=== PATIENT | female | born 1990 | race Two or more races ===

== ENCOUNTER 2019-12-07 03:00 | Inpatient (IN) | payer MEDICAID ==
[~2019-12-07] VITALS: Ht 170.2 cm; Wt 76.3 kg
[2019-12-07] MEDS ORDERED: LACTATED RINGERS 1,000 ML IV SCH (05:52)
[2019-12-07] MEDS ORDERED: NEWBORN KIT ONE (05:58)
[2019-12-07] MEDS ORDERED: METOCLOPRAMIDE 5 MG/ML, 2ML ONE (05:58)
[2019-12-07] MEDS ORDERED: OXYTOCIN 30U/ 0.9% NaCL 500ML 500 ML ONE (05:59)
[2019-12-07] MEDS ORDERED: METOCLOPRAMIDE 5 MG/ML, 2ML IV ONE (06:00)
[2019-12-07] MEDS ORDERED: SODIUM CITRATE/CITRIC ACID 30 ML UDC PO ONE (06:00)
[2019-12-07] MEDS ORDERED: LACTATED RINGERS 1,000 ML IVBOLUS ONE (06:00)
[2019-12-07 06:10] VITALS: BP 108/62
[2019-12-07] MEDS ORDERED: PREN-3 PO (06:11)
[2019-12-07 06:41] LABS: BASOPHILS # (AUTO) 0.02 x10^3/uL (0-0.1); BASOPHILS % (AUTO) 0 % (0-1); EOSINOPHILS # (AUTO) 0.16 x10^3/uL (0-0.4); EOSINOPHILS % (AUTO) 1 % (1-7); LYMPHOCYTES # (AUTO) 2.01 x10^3/uL (1-3.4); LYMPHOCYTES % (AUTO) 18 % (22-44); MD NO; MEAN CORPUSCULAR HGB CONC 33.4 g/dL (32.4-35.8); MEAN PLATELET VOLUME 9.1 fL (7.4-10.4); MONOCYTES # (AUTO) 0.57 x10^3/uL (0.2-0.8); MONOCYTES % (AUTO) 5 % (2-9); NEUTROPHILS # (AUTO) 8.72 x10^3/uL (1.8-6.8); NEUTROPHILS % (AUTO) 76 % (42-75); PLATELET COUNT 203 x10^3/uL (130-400); RED BLOOD COUNT 4.17 x10^6/uL (3.82-5.3); RED CELL DISTRIBUTION WIDTH 14.5 % (9.6-15.2)
[2019-12-07 06:42] LABS: AMPHETAMINE SCREEN, URINE Negative (Negative); BARBITURATE SCREEN, URINE Negative (Negative); BENZODIAZEPINE SCREEN, URINE Negative (Negative); CANNABINOID SCREEN, URINE Negative (Negative); COCAINE SCREEN, URINE Negative (Negative); METHADONE SCREEN, URINE Negative (Negative); OPIATE SCREEN, URINE Negative (Negative)
[2019-12-07] MEDS ORDERED: morphine SULFATE/PF 0.5 MG/ML, 10ML ONE (07:37)
[2019-12-07] MEDS ORDERED: DEXAMETHASONE 4 MG/ML, 1ML ONE (07:48)
[2019-12-07] MEDS ORDERED: OXYTOCIN 10 UNITS/ML, 1ML ONE (07:48)
[2019-12-07] MEDS ORDERED: WATER-INJECTION,STERILE 10 ML IV ONE (07:48)
[2019-12-07] MEDS ORDERED: PHENYLEPHRINE 10 MG/ML ONE (07:48)
[2019-12-07] MEDS ORDERED: ONDANSETRON 2MG/ML, 2ML ONE (07:48)
[2019-12-07] MEDS ORDERED: KETOROLAC 30 MG/1 ML ONE (07:48)
[2019-12-07] MEDS ORDERED: CEFAZOLIN 1,000 MG ONE (07:48)
[2019-12-07] MEDS ORDERED: SODIUM CHLORIDE 0.9% PF 10ML ONE (07:48)
[2019-12-07] MEDS: LACTATED RINGERS 1,000 ML IV SCH ×8 (09:03→20:42)
[2019-12-07] MEDS: OXYTOCIN 30U/ 0.9% NaCL 500ML 500 ML IV SCH ×2 (09:11→16:09)
[2019-12-07 09:41] VITALS: BP 101/68
[2019-12-07] MEDS ORDERED: METHYLERGONOVINE 0.2 MG/ML IM PRN (11:00)
[2019-12-07] MEDS ORDERED: ONDANSETRON 2MG/ML, 2ML IV PRN (11:00)
[2019-12-07] MEDS ORDERED: MISOPROSTOL 200 MCG TABLET PR PRN (11:00)
[2019-12-07] MEDS ORDERED: SIMETHICONE 80 MG CHEW TAB PO PRN (11:00)
[2019-12-07] MEDS ORDERED: CARBOPROST TROMETHAMINE 250 MCG/ML, 1ML IM PRN (11:00)
[2019-12-07 12:00] VITALS: BP 114/66
[2019-12-07 13:20] VITALS: BP 115/74
[2019-12-07] MEDS: KETOROLAC 30 MG/1 ML IV SCH ×2 (14:59→21:11)
[2019-12-07 16:15] VITALS: BP 109/71
[2019-12-07 16:56] LABS: MD YES
[2019-12-07] MEDS: OXYcodone/APAP 5/325MG TABLET PO PRN ×2 (16:56→21:10)
[2019-12-07 16:59] LABS: MEAN CORPUSCULAR HGB CONC 32.7 g/dL (32.4-35.8); MEAN CORPUSCULAR VOLUME 94.8 fL (80-100); MEAN PLATELET VOLUME 8.9 fL (7.4-10.4); PLATELET COUNT 217 x10^3/uL (130-400); RED BLOOD COUNT 4.18 x10^6/uL (3.82-5.3); RED CELL DISTRIBUTION WIDTH 14.3 % (9.6-15.2)
[2019-12-07 17:00] LABS: BAND#(MANUAL) 1.69 x10^3/uL; BANDS%(MANUAL) 7 % (0-7); LYMPH#(MANUAL) 1.69 x10^3/uL (1-3.4); LYMPHS% (MANUAL) 7 % (22-44); MONOS#(MANUAL) 1.21 x10^3/uL (0.3-2.7); MONOS% (MANUAL) 5 % (2-9); SEGS% (MANUAL) 81 % (42-75)
[2019-12-07 17:02] LABS: <PLATELET ESTIMATE> ADEQUATE; <PLT MORPHOLOGY> NORMAL PLT MORPH; <RBC MORPHOLOGY> NORMAL
[2019-12-07 19:36] VITALS: BP 110/71
[2019-12-07] MEDS: DOCUSATE 100 MG CAPSULE PO PRN (21:09)
[2019-12-08 00:20] VITALS: BP 118/82
[2019-12-08] MEDS: LACTATED RINGERS 1,000 ML IV SCH ×10 (01:03→19:00)
[2019-12-08] MEDS: OXYcodone/APAP 5/325MG TABLET PO PRN ×5 (02:32→21:36)
[2019-12-08] MEDS: KETOROLAC 30 MG/1 ML IV SCH ×5 (03:09→21:35)
[2019-12-08 03:24] VITALS: BP 105/68
[2019-12-08] MEDS: OXYTOCIN 30U/ 0.9% NaCL 500ML 500 ML IV SCH ×2 (05:03→15:03)
[2019-12-08 07:47] VITALS: BP 101/67
[2019-12-08] MEDS: DOCUSATE 100 MG CAPSULE PO PRN ×2 (08:50→21:36)
[2019-12-08] MEDS ORDERED: PRENATAL VIT/IRON/FA 1 EACH TABLET PO SCH (09:00)
[2019-12-08] MEDS: PRENATAL VIT/IRON/FA 1 EACH TABLET PO SCH (09:00)
[2019-12-08 19:30] VITALS: BP 106/65
[2019-12-08] MEDS: SIMETHICONE 80 MG CHEW TAB PO PRN (21:36)
[2019-12-08] MEDS: IBUPROFEN 600 MG TABLET PO PRN (22:05)
[2019-12-09] MEDS: OXYTOCIN 30U/ 0.9% NaCL 500ML 500 ML IV SCH ×3 (01:03→21:03)
[2019-12-09] MEDS: LACTATED RINGERS 1,000 ML IV SCH ×6 (01:03→21:03)
[2019-12-09] MEDS: SIMETHICONE 80 MG CHEW TAB PO PRN ×2 (04:07→11:47)
[2019-12-09] MEDS: IBUPROFEN 600 MG TABLET PO PRN ×3 (04:07→18:02)
[2019-12-09] MEDS: OXYcodone/APAP 5/325MG TABLET PO PRN ×5 (04:08→20:46)
[2019-12-09 07:00] VITALS: BP 107/71
[2019-12-09] MEDS: PRENATAL VIT/IRON/FA 1 EACH TABLET PO SCH (08:11)
[2019-12-09] MEDS: DOCUSATE 100 MG CAPSULE PO PRN ×2 (11:47→20:45)
[2019-12-09 19:15] VITALS: BP 115/78
[2019-12-10] MEDS: LACTATED RINGERS 1,000 ML IV SCH ×2 (00:22→05:13)
[2019-12-10] MEDS: IBUPROFEN 600 MG TABLET PO PRN ×4 (00:42→23:24)
[2019-12-10] MEDS: OXYcodone/APAP 5/325MG TABLET PO PRN ×7 (00:43→23:25)
[2019-12-10 08:00] VITALS: BP 118/79
[2019-12-10] MEDS: PRENATAL VIT/IRON/FA 1 EACH TABLET PO SCH (08:08)
[2019-12-10] MEDS: DOCUSATE 100 MG CAPSULE PO PRN (08:08)
[2019-12-10] MEDS ORDERED: OXYC-302 PO (09:48)
[2019-12-10] MEDS ORDERED: DOCU-131 PO (09:48)
[2019-12-10] MEDS ORDERED: IBUP-1222 PO (09:48)
[2019-12-10 20:32] VITALS: BP 131/80
[2019-12-11] MEDS: OXYcodone/APAP 5/325MG TABLET PO PRN ×2 (04:16→10:06)
[2019-12-11] MEDS: PRENATAL VIT/IRON/FA 1 EACH TABLET PO SCH (07:18)
[2019-12-11] MEDS: DOCUSATE 100 MG CAPSULE PO PRN (07:18)
[2019-12-11] MEDS: IBUPROFEN 600 MG TABLET PO PRN ×2 (07:18→13:16)
[2019-12-11 07:20] VITALS: BP 111/75
== END 2019-12-11 13:37 | disposition home or self-care (01) | DRG 785 ==
LOC: LDIP 05:48 → 2NW 09:41
PROVIDERS: ADMIT Obstetrics & Gynecology; ATTEND Obstetrics & Gynecology
PROC: 10D00Z1 Extraction of Products of Conception, Low, Open Approach (ICD-10-PCS; principal; 2019-12-07)
PROC: 0UB70ZZ Excision of Bilateral Fallopian Tubes, Open Approach (ICD-10-PCS; 2019-12-07)
DX: O34.211 Maternal care for low transverse scar from previous cesarean delivery (principal); O69.81X0 Labor and delivery complicated by cord around neck, without compression, not applicable or unspecified; Z37.0 Single live birth; Z3A.37 37 weeks gestation of pregnancy; Z87.59 Personal history of other complications of pregnancy, childbirth and the puerperium; Z20.828 Contact with and (suspected) exposure to other viral communicable diseases
CPT/HCPCS: 36415; 80307; 85025; 86592; 86850; 86900; 86923; 87635; 88302; G0378; J0690; J1100; J1885; J2274; J2405; J2210; J2370; J2590; J2765; J7120

== ENCOUNTER 2019-12-19 20:03 | Emergency (ER) | payer MEDICAID ==
[~2019-12-19] VITALS: Ht 170.2 cm; Wt 72.7 kg
[~2019-12-19 20:03] MED LIST: DOCU-131 PO; IBUP-1222 PO; OXYC-302 PO; PREN-3 PO
[2019-12-19 20:51] VITALS: BP 143/81
[2019-12-19] MEDS ORDERED: ONDANSETRON 2MG/ML, 2ML ONE (20:55)
[2019-12-19] MEDS ORDERED: ONDANSETRON 2MG/ML, 2ML IVPush ONE (21:00)
[2019-12-19] MEDS ORDERED: SODIUM CHLORIDE 0.9% 1,000ML IVBOLUS ONE (21:00)
[2019-12-19] MEDS ORDERED: SODIUM CHLORIDE FLUSH 10ML SYR IVF ONE (21:00)
[2019-12-19 21:10] LABS: BASOPHILS # (AUTO) 0.03 x10^3/uL (0-0.1); BASOPHILS % (AUTO) 0 % (0-1); EOSINOPHILS # (AUTO) 0.32 x10^3/uL (0-0.4); EOSINOPHILS % (AUTO) 3 % (1-7); LYMPHOCYTES # (AUTO) 2.26 x10^3/uL (1-3.4); LYMPHOCYTES % (AUTO) 23 % (22-44); MD NO; MEAN CORPUSCULAR HGB CONC 33.3 g/dL (32.4-35.8); MEAN CORPUSCULAR VOLUME 93.2 fL (80-100); MEAN PLATELET VOLUME 7.8 fL (7.4-10.4); MONOCYTES # (AUTO) 0.52 x10^3/uL (0.2-0.8); MONOCYTES % (AUTO) 5 % (2-9); NEUTROPHILS # (AUTO) 6.56 x10^3/uL (1.8-6.8); NEUTROPHILS % (AUTO) 68 % (42-75); PLATELET COUNT 397 x10^3/uL (130-400); RED BLOOD COUNT 4.16 x10^6/uL (3.82-5.3); RED CELL DISTRIBUTION WIDTH 13.8 % (9.6-15.2)
[2019-12-19 21:17] LABS: ALANINE AMINOTRANSFERASE 21 U/L (12-78); ALBUMIN 3.1 g/dL (3.4-5.0); ANION GAP 6 mmol/L (5-15); CALCIUM 8.7 mg/dL (8.5-10.1); CHLORIDE 110 mmol/L (98-107); CREATININE 0.55 mg/dL (0.55-1.02)
[2019-12-19 21:19] LABS: ALKALINE PHOSPHATASE 80 U/L (45-117); BILIRUBIN,TOTAL 0.2 mg/dL (0.2-1.0)
--- NOTE | 2019-12-19 21:39 | NUR ---
Pt arrives to ed with new onset of vaginal bleeding and reports she has saturated 5 pads in 1 hour. Pt reports recently having a cesarian section to deliver. Pt reports she is also more tired but pt also reports she is not sleeping as well due to the baby does not sleep at night. Pt connected to monitors and call light in reach. Pt reports fluids are helping her feel better. Pt has brisk cap refill and has unlabored respirations. Awaiting further orders.
--- NOTE | 2019-12-19 23:07 | NUR ---
Patient/Caregiver given discharge instructions and they have confirmed that they understand the instructions. Patient ambulatory with steady gait.
== END 2019-12-19 23:09 | disposition home or self-care (01) ==
LOC: ED 20:33
DX: O90.89 Other complications of the puerperium, not elsewhere classified (principal); N93.9 Abnormal uterine and vaginal bleeding, unspecified; R10.30 Lower abdominal pain, unspecified; R06.02 Shortness of breath
CPT/HCPCS: 36415; 76856; 80053; 85025; 96374; 99284; J2405; J7030